=== PATIENT | male | born 1990 | race Caucasian/White ===

== ENCOUNTER 2020-01-17 21:50 | Outpatient (REF) | payer MEDICAID, SELFPAY ==
[2020-01-17 22:35] LABS: Abs Immature Grans 0.03 10^3/uL (0.0-0.06); Absolute Basophil Count 0.05 10^3/uL (0.0-0.2); Absolute Eosinophil Count 0.07 10^3/uL (0.0-0.7); Absolute Lymphocyte Count 2.02 10^3/uL (1.2-3.4); Absolute Monocyte Count 0.82 10^3/uL (0.1-0.8); Basophils % 0.5; Eosinophils % 0.6; HCT 44.6 % (40.0-50.0); HGB 14.7 g/dL (13.5-17.5); Immature Grans % 0.3; Lymphocytes % 18.4; MCH 31.1 pg (27.0-33.0); MCV 94.3 fL (80-95); MPV 10.2 fL (8.0-11.0); Monocytes % 7.5; Neutrophils % 72.7; Nucleated RBC 0 %; Platelet Count 276 10^3/uL (130-400); RBC 4.73 10^6/uL (4.36-5.78); RDW 13.4 % (11.8-14.1); RDW-SD 47.2 fL; WBC 10.99 10^3/uL (4.4-10.8)
[2020-01-17 22:40] LABS: Absolute Neutrophil Count 7.99 10^3/uL (1.2-6.7)
[2020-01-17 22:52] LABS: ALT 57 U/L (16-63); AST 30 U/L (15-37); Albumin 3.9 g/dL (3.4-5.0); Alkaline Phosphatase 72 U/L (46-116); Anion Gap 7.5 mmol/L (3-11); BUN 15 mg/dL (7-18); Bilirubin, Direct 0.06 mg/dL (0.00-0.20); Bilirubin, Total 0.3 mg/dL (0.2-1.0); CO2 30.5 mmol/L (21.0-32.0); CREATININE 0.87 mg/dL (0.70-1.30); Calcium 9.3 mg/dL (8.5-10.1); Chloride 104 mmol/L (98-107); Glucose 88 mg/dL (74-106); Potassium 4.4 mmol/L (3.5-5.1); Sodium 142 mmol/L (136-145)
[2020-01-17 23:01] LABS: GGT 26 U/L (15-85)
[2020-01-21 16:38] LABS: HIV-1/2 Ag & Ab Screen Negative (Negative)
[2020-01-25 13:23] LABS: Hep A Total Ab w Rflx IgM Negative (Negative); Hepatitis B Surface Ag Negative (Negative); Hepatitis C Ab w Rflx HCV PCR Negative (Negative)
== END 2020-01-17 22:10 ==
LOC: LBN 21:50
PROVIDERS: Visit Provider Nurse Practitioner Family
DX: F11.20 Opioid dependence, uncomplicated (principal)
CPT/HCPCS: 80053; 80076; 80307; 86709; 86803; 87340; 87389; 82977; 85025

== ENCOUNTER 2021-02-09 10:16 | Outpatient (REF) | payer MEDICAID, SELFPAY ==
[2021-02-09 14:46] LABS: ALT 23 U/L (16-63); AST 6 U/L (15-37); GGT 26 U/L (15-85)
== END 2021-02-09 10:17 | disposition home or self-care (01) ==
LOC: LBN 10:16
PROVIDERS: Visit Provider Nurse Practitioner
DX: F11.10 Opioid abuse, uncomplicated (principal)
CPT/HCPCS: 82977; 84450; 84460